=== PATIENT | female | born 1995 | race Caucasian/White ===

== ENCOUNTER 2020-10-07 21:04 | Outpatient (CLI) | payer MEDICAID ==
[~2020-10-07] VITALS: Ht 162.6 cm; Wt 101.4 kg
--- NOTE | 2020-10-07 21:08 | NUR ---
2107- PT PRESENTS TO LDR COMPLAINING OF CONTRACTIONS, AMBULATORY TO ROOM LR6, CHANGED INTO GOWN. 2116- EFM X2 APPLIED. PT REPORTS WALE ALL DAY WITH INCREASING INTENSITY IN LAST 2 HOURS. DENIES VAGINAL BLEEDING OR LEAKING. PT STATES SHE IS FEELING BABY MOVE. PLAN OF CARE FOR LABOR CHECK DISCUSSED. 2119- SVE BY THIS NURSE . DISCUSSED WAITING AN HOUR THEN RECHECKING, PT AGREEABL WITH THIS PLAN OF CARE. 2129- NURSING ADMISSION HISTORY AND ASSESSMENT COMPLETE. 214- PT OFF MONITOR TO AMBULATE IN HALLS. 2224- PT BACK TO BED AND MONITORS ADJUSTED. SHE REPORTS CONTRACTIONS ARE MORE PAINFUL WHILE SHE IS UP WALKING. 2230- SVE BY THIS NURSE UNCHANGED. DISCUSSED DISMISSAL TO HOME AND WHEN TO RETURN. PT AGREEABLE AND VERBALIZES UNDERSTANDING. 2243- PT OFF MONITORS FOR DISMISSAL. DISCHARGE INSTRUCTIONS GIVEN INCLUDING WHEN TO RETURN TO R. PT VERBALIZES UNDERSTANDING. 2250- PT DISMISSED TO HOME AMBULATORY ACCOMPANIED BY BOYFRIEND.
[2020-10-07] MEDS ORDERED: PRENATAL VITAMI1 TA3 PO (21:37)
[2020-10-07] MEDS ORDERED: COLACE 100100 MG/CAP PO (21:38)
[2020-10-07] MEDS ORDERED: CALCIUM 600MG+D1 TAB PO (21:38)
[2020-10-07] MEDS ORDERED: ASPIRIN 81M81 MG/TA2 PO (21:39)
[2020-10-07 21:43] VITALS: BP 122/76; PULSE 88; TEMP 98.3
== END 2020-10-07 22:50 | disposition home or self-care (01) ==
LOC: LDR 21:04 → LDRO 21:04
DX: O62.9 Abnormality of forces of labor, unspecified (principal); Z3A.39 39 weeks gestation of pregnancy
CPT/HCPCS: OP

== ENCOUNTER 2020-10-09 18:45 | Outpatient (CLI) | payer MEDICAID ==
[~2020-10-09] VITALS: Ht 162.6 cm; Wt 101.8 kg
[~2020-10-09 18:45] MED LIST changes: -IBU600 MG PO; -TUMS ULTRA ST1000 MG PO
--- NOTE | 2020-10-09 18:53 | NUR ---
Ambulatory to unit for labor asseswsment, accompanied by significant other. Oriented to room, monitor, plan of care. Questions invited and answerred.
[2020-10-09 19:00] VITALS: BP 129/73; PULSE 97; TEMP 98.8
[2020-10-09 20:15] VITALS: BP 136/72; PULSE 76
--- NOTE | 2020-10-09 20:20 | NUR ---
SVE unchanged, no free fluid illicited with exam. Category 1 FHT's.
--- NOTE | 2020-10-09 20:40 | NUR ---
Discharge instructions reviewed with pt and spouse. Questions invited and answered.
== END 2020-10-09 20:40 | disposition home or self-care (01) ==
LOC: LDRO 18:45 → LDR 18:52
DX: O62.9 Abnormality of forces of labor, unspecified (principal); Z3A.39 39 weeks gestation of pregnancy

== ENCOUNTER → 2020-10-09 | Outpatient (CLI) | payer MEDICAID ==
[~2020-10-09] MED LIST: ASPIRIN 81M81 MG/TA2 PO; CALCIUM 600MG+D1 TAB PO; COLACE 100100 MG/CAP PO; IBU600 MG PO; PRENATAL VITAMI1 TA3 PO; TUMS ULTRA ST1000 MG PO
== END ==
LOC: ZCOL.LAB 10:03
DX: Z20.822 Contact with and (suspected) exposure to COVID-19 (principal)

== ENCOUNTER 2020-10-14 06:03 | Inpatient (IN) | payer MEDICAID ==
[~2020-10-14] VITALS: Ht 162.6 cm; Wt 102.7 kg
[2020-10-14] VITALS (41 sets, daily range): BP systolic 102–156; BP diastolic 56–89; PULSE 60–107; TEMP 97.7–98.5
--- NOTE | 2020-10-14 06:35 | NUR ---
Patient ambulatory to LR6 with significant other, changed into gown, FHR/TOCO monitors placed and explained. Patient denies any regular contractions/leaking of fluid/vaginal bleeding/decreased movement. Plan of care discussed and questions answered. 0645: IV started in left wrist, blood obtained and to lab, LR infusing. Assessment completed, consents gone over/signed, and packet given. 0705: Pitocin induction discussed and patient agrees with plan. Pitocin started at 2mu/hr per protocol. 0905: Roles at bedside and assessing patient and FHR strip. 0908: SVE- 3/80/-2 and AROM at this time with meconiun fluid noted. Patient updated on risks with meconium. Plan of care discussed.
[2020-10-14] MEDS ORDERED: TUMS ULTRA ST1000 MG PO (07:00)
[2020-10-14 07:22] LABS: BASO % 0.2 % (0.0-2.0); GRAN # 7.2 (1.4-6.5); GRAN % 73.8 % (42.2-75.2); HEMATOCRIT 35.4 % (37.0-47.0); LYMPH % 20.5 % (20.0-51.0); MEAN CELL VOLUME 90 fl (80.0-100.0); MEAN CORPUSCULAR HEMOGLOBIN 31 pg (27.0-31.0); MEAN CORPUSCULAR HGB CONC 34 g/dl (33.0-37.0); MEAN PLATELET VOLUME 11.8 fl (7.4-10.4); MONO # 0.5 (0.1-0.6); MONO % 4.6 % (1.7-9.3); PLATELET COUNT 157 K/mm3 (130-400); RED BLOOD COUNT 3.94 M/mm3 (4.10-5.30); REDCELL DISTRIBUTION WIDTH-CV 13.2 % (11.5-14.5)
--- NOTE | 2020-10-14 09:50 | NUR ---
Patient requests epidiral and Delilah Garrison [employer]MENT REPA[employer]ER notified. 1025: Patient sitting on edge of bed for epidural. Delilah Garrison [employer] E[employer]MENT REPAIRER at bedside. Diffuclty tracing FHR due to maternal position. 1031: Single dose given and patient tolerates well. 1038: Patient repositioned and plan of care/safety precautions discussed. 1120: Patient supine and soni catheter placed. SVE-4/90/-2. FHR decreased to 90bpm and returns to baseline [id number]. Patient left lateral and right leg resting in stirrup. 1200: FHR baseline 120-130bpm with recurrent early decelerations noted. Patient right lateral with left leg resting in stirrup. 1255: Recurrent early decelerations noted. Patient repositioned and in sitting in shanell position. 1345: SVE-8/90/-1 and patient left lateral. FHR baseline 120bpm decreased to 70-80bpm for approx. 2 minutes. Patient right lateral and bolus started. Patient high fowlers and FHR increased to 90bpm for approx. 5 minutes. Patient wedged right. 1355: SVE-9/90/1 and good scalp stimulation noted. FHR 115-120bpm and Dr. Suarez called and notified. 1410: Recurrent early declerations noted and tachysystole noted with contracitons. Pitocin turned down to 10mu/hr.
--- NOTE | 2020-10-14 14:50 | NUR ---
FHR Baseline 115-120bpm and recurrent early decelerations noted. 1455: SVE-10/100/0 Alberto catheter removed and patient tolerates well. FHR decreasing ot 100-115bpm. Dr. Suarez called and updated. 1505: Pushing instructions discussed and patient begins to push with each contraction. 1530: FHR baseline 110-115bpm with recurrent variable decelerations noted with pushing. Great progress noted and Dr Suarez called for delivery. Patient continues to push with each contractions. 1540: Dr. Suarez at bedside and patient prepped for vaginal delivery. Patient pushing with Dr. Suarez 1543: Spontaneous vaginal delivery of viable male- head followed by body. Infant bulb syringed and to patients abdomen. Isreal RN assumes care of . Cord clamped by physician and cut by FOB. Cord blood obtained. 1546: Spontaneous delivery of placenta and pitocin bolus started at 333mu/hr per protocol. Fundal massage done/firm/bleeding WNL Dr. Suarez begins laceration. Patient straight catherized and pericare done Patient repositioned and ice pack to perineum Plan of care discussed
[2020-10-15 00:45] VITALS: BP 118/63; PULSE 78; TEMP 97.9
[2020-10-15 07:30] VITALS: BP 110/54; PULSE 88; TEMP 97.8
[2020-10-15] MEDS ORDERED: IBU600 MG PO (08:01)
--- NOTE | 2020-10-15 10:06 | NUR ---
Initial visit; Patient thanked Graduate Student for offering congratulations and God's blessings for the of her son. Graduate Student thanked patient for choosing [facility].
[2020-10-15 12:00] VITALS: BP 120/67; PULSE 85; TEMP 98.3
[2020-10-15 17:23] VITALS: BP 122/69; PULSE 72; TEMP 97.6
[2020-10-15 21:15] VITALS: BP 121/60; PULSE 71; TEMP 97.4
[2020-10-16 07:45] VITALS: BP 102/55; PULSE 75; TEMP 97.6
== END 2020-10-16 11:20 | disposition home or self-care (01) | DRG 768 ==
LOC: LDR 06:03 → OB 06:03
PROVIDERS: ADMIT Obstetrics & Gynecology
PROC: 10E0XZZ Delivery of Products of Conception, External Approach (ICD-10-PCS; principal; 2020-10-14)
PROC: 0UQJXZZ Repair Clitoris, External Approach (ICD-10-PCS; 2020-10-14)
PROC: 0KQM0ZZ Repair Perineum Muscle, Open Approach (ICD-10-PCS; 2020-10-14)
PROC: 3E033VJ Introduction of Other Hormone into Peripheral Vein, Percutaneous Approach (ICD-10-PCS; 2020-10-14)
DX: O48.0 Post-term pregnancy (principal); Z37.0 Single live birth; O99.12 Other diseases of the blood and blood-forming organs and certain disorders involving the immune mechanism complicating childbirth; D68.51 Activated protein C resistance; O77.0 Labor and delivery complicated by meconium in amniotic fluid; O99.824 Streptococcus B carrier state complicating childbirth; O70.1 Second degree perineal laceration during delivery; O71.89 Other specified obstetric trauma; Z3A.40 40 weeks gestation of pregnancy
CPT/HCPCS: J2540; J2590; J2795; J7120